=== PATIENT | female | born 1935 | race Caucasian/White ===

== ENCOUNTER → 2020-11-11 | Outpatient (CLI) | payer MEDICARE ==
--- NOTE | 2020-11-11 10:06 | KCIC ---
EXAM: Bilateral knees, standing view. HISTORY: Pain. COMPARISON: None. FINDINGS: A frontal standing view both knees is obtained. There is severe right lateral compartment a nd mild to moderate and left medial compartment joint space narrowing with subchondral sclerosis and spurring. There is mild right medial compartment spurring. There is chondrocalcinosis involving later al compartment of the left knee. There is bilateral genu valgus. IMPRESSION: 1. 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 2. [id number] medial compartment osteoarthritis of the left knee with genu valgus. Electronically signed by: Julia Lemus MD (11/11/2020 10:04 AM) [id number]
== END ==
LOC: KCIC 09:36
PROVIDERS: ATTEND Physical Medicine & Rehabilitation
DX: M17.0 Bilateral primary osteoarthritis of knee (principal); M21.062 Valgus deformity, not elsewhere classified, left knee; M21.061 Valgus deformity, not elsewhere classified, right knee
CPT/HCPCS: 73565